=== PATIENT | female | born 1950 | race Caucasian/White ===

== ENCOUNTER 2022-10-20 19:28 | Emergency (ER) | payer OTHER ==
[~2022-10-20] VITALS: Ht 157.5 cm; Wt 63.3 kg
[2022-10-20] MEDS ORDERED: ACETAMINOPHEN 325MG TABLET PO ONE (21:00)
[2022-10-20] MEDS ORDERED: ACET-2708 MT (21:54)
[2022-10-20] MEDS ORDERED: OXYMETAZOLINE HCL NASAL SPRAY 15ML BOTHNSTRLS SCH (22:15)
[2022-10-20 22:30] VITALS: BP 126/63
== END 2022-10-20 22:45 | disposition home or self-care (01) ==
LOC: ER 19:28
DX: S02.2XXA Fracture of nasal bones, initial encounter for closed fracture (principal); W01.0XXA Fall on same level from slipping, tripping and stumbling without subsequent striking against object, initial encounter; Y93.89 Activity, other specified; Y92.89 Other specified places as the place of occurrence of the external cause; Y99.8 Other external cause status
CPT/HCPCS: 70486; 99284